=== PATIENT | female | born 1950 | race Caucasian/White ===

== ENCOUNTER 2016-08-13 08:18 | Emergency (ER) | payer BC ==
[~2016-08-13] VITALS: Ht 162.6 cm; Wt 129.3 kg
[~2016-08-13 08:18] MED LIST: ASPIR 8181 M1 PO; ATORVASTATIN CA40 MG PO; CELEXA20 MG PO; COUMADIN,JANTO2.5 MG PO; CYANOCOBAL1000 MCG/2 IM; GLIPIZIDE XL5 MG PO; GLIPIZIDE5 MG PO; HYDROCODON-ACE1 EAC7 PO; LISINOPRIL20 MG PO; LOPRESSOR25 MG PO; METOPROLOL TART50 MG PO; NEURONTIN300 MG PO; PLAVIX75 MG PO; PROTONIX40 MG PO; TEMAZEPAM15 MG PO; TYLENOL EXTRA500 MG PO; ZESTRIL,PRINIVI10 MG PO; [UNRECOGNIZED DRUG - OTHER] IM
[2016-08-13 09:09] LABS: HEMATOCRIT 41.6 % (36.0-46.0); MCH 29.6 PG (29.0-34.0); MCV 92.4 FL (83-99); MEAN PLAT.VOLUME 9.6 uM^3 (9.5-12.4); PLATELET COUNT 217 K/uL (156-360); RBC DIS.WIDTH-CV 15.5 % (11.8-14.6); RBC DIS.WIDTH-SD 50.2 % (39-53); WHITE BLOOD COUNT 6.7 K/uL (4.1-10.2)
[2016-08-13 09:19] LABS: CHLORIDE 106 mEq/L (99-109); POTASSIUM 4.5 mEq/L (3.7-5.4); SODIUM 140 mEq/L (136-147)
[2016-08-13 09:21] LABS: GLUCOSE 129 mg/dL (70-99)
[2016-08-13 09:22] LABS: ANION GAP 7 MEQ/L (2-14)
[2016-08-13 09:23] LABS: TOTAL BILIRUBIN 0.4 mg/dL (0.0-1.0)
[2016-08-13 09:24] LABS: ALKALINE PHOSPHATASE 144 IU/L (3-129)
[2016-08-13 09:25] LABS: GFR ESTIMATE (CALCULATED) > 59 mL/min/
[2016-08-13 09:26] LABS: UREA NITROGEN (BUN) 14 mg/dL (9-23)
[2016-08-13 10:13] LABS: ADD MIUA? YES; BILIRUBIN NEGATIVE; BLOOD NEGATIVE; COLOR YELLOW ((YELLOW)); GLUCOSE (STRIP) NEGATIVE; KETONES NEGATIVE; LEUKOCYTES TRACE; NITRITE NEGATIVE; PROTEIN (STRIP) NEGATIVE; SPECIFIC GRAVITY 1.019 (1.000-1.030)
[2016-08-13 10:16] LABS: BACTERIA RARE /HPF; EPITHELIAL CELLS 2+ /HPF; MUCUS TRACE /LPF; RED BLOOD CELLS 0-5 /HPF (0-5); WHITE BLOOD CELLS 0-5 /HPF (0-5)
[2016-08-13 10:24] VITALS: BP 141/82
== END 2016-08-13 10:26 | disposition home or self-care (01) ==
LOC: EME 08:18
PROVIDERS: Nurse Practitioner Family
DX: K59.00 Constipation, unspecified (principal); R10.12 Left upper quadrant pain; I10 Essential (primary) hypertension; I25.2 Old myocardial infarction; E11.9 Type 2 diabetes mellitus without complications; Z96.611 Presence of right artificial shoulder joint; Z79.82 Long term (current) use of aspirin; Z79.84 Long term (current) use of oral hypoglycemic drugs; F17.200 Nicotine dependence, unspecified, uncomplicated
CPT/HCPCS: 71020; 74000; 80053; 81003; 84550; 85027; 99281; 99285; J1885